=== PATIENT | male | born 1990 | race Two or more races ===

== ENCOUNTER 2022-05-05 14:37 | Emergency (ER) | payer MEDICAID ==
[~2022-05-05] VITALS: Ht 172.7 cm; Wt 90.2 kg
[~2022-05-05 14:37] MED LIST: BACL10TA PO; IBUP800T27 PO
[2022-05-05 15:30] VITALS: BP 127/74
[2022-05-05] MEDS ORDERED: IBUP800T27 PO (16:07)
[2022-05-05] MEDS ORDERED: BACL10TA PO (16:07)
== END 2022-05-05 16:10 | disposition home or self-care (01) ==
LOC: ER 14:37
DX: M54.42 Lumbago with sciatica, left side (principal); E66.01 Morbid (severe) obesity due to excess calories; Z68.30 Body mass index [BMI] 30.0-30.9, adult; Z79.1 Long term (current) use of non-steroidal anti-inflammatories (NSAID); Z79.899 Other long term (current) drug therapy